=== PATIENT | male | born 1990 ===

== ENCOUNTER 2021-04-02 20:05 | Emergency (ER) | payer MEDICAID, OTHER ==
[~2021-04-02] VITALS: Ht 177.8 cm; Wt 97.5 kg
[2021-04-02 23:33] VITALS: BP 144/97
== END 2021-04-03 00:45 | disposition home or self-care (01) ==
LOC: ER 20:05
DX: M54.5 Low back pain (principal); M25.571 Pain in right ankle and joints of right foot; R51.9 Headache, unspecified; V49.49XA Driver injured in collision with other motor vehicles in traffic accident, initial encounter; Y93.89 Activity, other specified; Y92.410 Unspecified street and highway as the place of occurrence of the external cause; Y99.8 Other external cause status
CPT/HCPCS: 70450; 72125; 72131; 73600